=== PATIENT | female | born 1955 | race Caucasian/White ===

== ENCOUNTER 2016-08-05 08:23 | Emergency (ER) | payer OTHER ==
[~2016-08-05] VITALS: Ht 162.6 cm; Wt 77.0 kg
[~2016-08-05 08:23] MED LIST: PRIL40CA PO; RANI150 PO
[2016-08-05 08:27] VITALS: BP 123/74; PULSE 67; RESP 18; TEMP 98.1; O2SAT 99
[2016-08-05] MEDS ORDERED: RANI1TAB7 PO (08:39)
[2016-08-05] MEDS ORDERED: OMEP40CA2 PO (08:39)
[2016-08-05] MEDS ORDERED: CYCL1TAB29 PO (08:49)
--- NOTE | 2016-08-05 08:50 | PD ---
HPI Chief Complaint: Back/ Neck Pain or Injury Time Seen by Provider: 08:36 Travel History International Travel<30 days: No Contact w/Intl Traveler<30days: No Traveled to known affect area: No History of Present Illness HPI 61-year-old female here with complaint of back pain. Over the last 2 weeks patient has had a flareup of her intermittent chronic back pain. This is diffuse throughout the low back. However yesterday she developed pain more right sided and lower. She describes this as pain within the but it radiates minimally down into the right thigh. The pain is cramping and slightly burning in nature. Patient has not had any fevers, chills, bowel or bladder symptoms. No recent falls or trauma. Pain is moderate, and she has not found anything that seems to make it better at home. PFSH Past Medical History Cancer: No Cardiovascular Problems: No Diabetes: No Diminished Hearing: No Endocrine: No Gastrointestinal Disorders: Yes (ESOPHAGEAL DILITATION) GERD: Yes Genitourinary: No Hepatitis: No Hiatal Hernia: No Immune Disorder: No Musculoskeletal: Yes (NECK) Neurologic: No Psychiatric: No Reproductive: No Respiratory: No Thyroid Disease: No Menopausal: Yes Past Surgical History Abdominal Surgery: No Body Medical Devices: PLATE IN NECK Cardiac Surgery: No Ear Surgery: No Endocrine Surgery: No Eye Surgery: Yes (LASIK SURGERY) Genitourinary Surgery: No Gynecologic Surgery: No Joint Replacement: No Oral Surgery: No Pacemaker: No Thoracic Surgery: No Social History Alcohol Use: Yes (OCC) Tobacco Use: No Substance Use: No Allergies-Medications (Allergen,Severity, Reaction): Coded Allergies: No Known Allergies (Unverified , 08/05/16) Reported Meds & Prescriptions Reported Meds & Active Scripts Active Flexeril (Cyclobenzaprine HCl) 10 Mg Tab 10 Mg PO TID PRN Reported Ranitidine Maximum Strength (Ranitidine HCl) 150 Mg Tab 150 Mg PO BID Omeprazole 40 Mg Cap 40 Mg PO DAILY Review of Systems Except as stated in HPI: all other systems reviewed are Neg Physical Exam Narrative GENERAL: Well-appearing female in no acute distress SKIN: Focused skin assessment warm/dry. HEAD: Normocephalic. EYES: No scleral icterus. No injection or drainage. ENT: Mucous membranes pink and moist. NECK: Supple CARDIOVASCULAR: Regular rate and rhythm. RESPIRATORY: No accessory muscle use. GASTROINTESTINAL: Abdomen soft, non-tender, nondistended. MUSCULOSKELETAL: No midline tenderness to palpation of the cervical, thoracic, lumbar spine. Patient has reproducible tenderness to palpation over the right sacroiliac joint that radiates slightly into the buttock and leg. Positive right sided straight leg raise. 5 out of 5 strength in the bilateral lower extremities with distal reflexes, sensation and pulses intact. NEUROLOGICAL: Awake and alert. Gait is slightly antalgic. Normal speech. PSYCHIATRIC: Appropriate mood and affect; insight and judgment normal. Data Data Last Documented VS Vital Signs Date Time Temp Pulse Resp B/P Pulse Ox O2 Delivery O2 Flow Rate FiO2 08/05/16 08:27 98.1 67 18 123/74 99 Orders Ketorolac Inj (Toradol Inj) (08/05/16 09:00) [facility] Medical Decision Making Medical Screen Exam Complete: Yes Emergency Medical Condition: Yes Medical Record Reviewed: Yes Differential Diagnosis 61-year-old female here with complaint of 2 weeks of acute on chronic low back pain, and now primarily more right sided pain over the last day. Exam is consistent with classic sciatica. No red flags or warning signs to warrant imaging for fracture, cauda equina syndrome, epidural abscess. Narrative Course Patient was given Toradol IM and will be given Flexeril and NSAIDs for home. Diagnosis Primary Impression: Right sided sciatica Referrals: Primary Care Physician as needed Patient Instructions: General Instructions, Lower Back Exercises (ED), Sciatica (ED) Additional Instructions: Flexeril as needed for muscle relaxer. Aleve twice a day as discussed. Ice and heat the affected area 20 minutes at a time 3-4 times daily. Stretching exercises as discussed. Follow-up with primary care provider symptoms persist. Med/Other Pt SpecificInfo: Prescription(s) given Scripts Cyclobenzaprine (Flexeril)10 Mg Tab10 Mg PO TID PRN (SPASM) #21 TAB Ref 0 Prov:Hafsa Ocampo MD 08/05/16 Disposition: 01 DISCHARGE HOME Condition: Stable Hafsa Ocampo MD Aug 05, 2016 08:50
[2016-08-05] MEDS ORDERED: KETOROLAC TROMETHAMINE 60 MG/2 ML (IM) VIAL IM ONE (09:00)
== END 2016-08-05 09:14 | disposition home or self-care (01) ==
LOC: PHEFT 08:23
DX: M54.31 Sciatica, right side (principal); K21.9 Gastro-esophageal reflux disease without esophagitis
CPT/HCPCS: 96372; 99284; J1885

== ENCOUNTER 2016-09-16 17:20 | Emergency (ER) | payer OTHER ==
[~2016-09-16] VITALS: Ht 162.6 cm; Wt 79.0 kg
[~2016-09-16 17:20] MED LIST changes: +CYCL1TAB29 PO; +OMEP40CA2 PO; -PRIL40CA PO; -RANI150 PO; +RANI1TAB7 PO
[2016-09-16 17:27] VITALS: BP 163/71; PULSE 66; RESP 16; TEMP 98.2; O2SAT 100
[2016-09-16] MEDS ORDERED: MECL-62 PO (17:47)
[2016-09-16 17:56] VITALS: BP 153/71; PULSE 58; RESP 18; O2SAT 100
--- NOTE | 2016-09-16 18:04 | PD ---
HPI Chief Complaint: Abnormal Results Time Seen by Provider: 17:36 Travel History International Travel<30 days: No Contact w/Intl Traveler<30days: No Traveled to known affect area: No History of Present Illness HPI 61-year-old female complains of lightheadedness, generalized malaise and weakness. Patient states that the symptoms started about month ago and get worse since then. Patient was seen with personal physician and had lab work and EKG done. Patient was referred to transformation lead. Patient was seen by Dr. Rios 3 days ago and had a stress test done 2 days ago which was normal. Patient was advised to have the Holter monitor. Patient has Holter monitor on now. Patient states that she started having increasing tiredness and shortness of breath for the past month. Patient also complains of intermittent dizziness. Patient was taking meclizine which she started yesterday. Patient denies any nausea vomiting diarrhea. Patient denies any headache. Patient denies any chest pain. Patient denies abdominal pain. Patient denies any dysuria or frequency. Patient denies any vaginal discharge or bleeding. Patient denies any blood per rectum. Patient denies any alcohol or drug abuse. Patient was seen by surveyor hydrographic this morning and before the ED for evaluation. PFSH Past Medical History Cancer: No Cardiovascular Problems: Yes (NEG STRESS TEST 08/2016) Diabetes: No Diminished Hearing: No Endocrine: No Gastrointestinal Disorders: Yes (ESOPHAGEAL DILITATION) GERD: Yes Genitourinary: No Hepatitis: No Hiatal Hernia: No Immune Disorder: No Musculoskeletal: Yes (NECK) Neurologic: No Psychiatric: No Reproductive: No Respiratory: No Thyroid Disease: No Influenza Vaccination: Yes ?: Not Menopausal: Yes Past Surgical History Abdominal Surgery: No Body Medical Devices: PLATE IN NECK Cardiac Surgery: Yes Ear Surgery: No Endocrine Surgery: No Eye Surgery: Yes (LASIK SURGERY) Genitourinary Surgery: No Gynecologic Surgery: No Joint Replacement: No Oral Surgery: No Pacemaker: No Thoracic Surgery: No Other Surgery: Yes Social History Alcohol Use: Yes (OCC) Tobacco Use: No Substance Use: No Allergies-Medications (Allergen,Severity, Reaction): Coded Allergies: No Known Allergies (Unverified , 09/16/16) Reported Meds & Prescriptions Reported Meds & Active Scripts Active Potassium Chloride ER (Potassium Chloride) 10 Meq Cap 10 Meq PO DAILY Bactrim DS (Sulfamethoxazole-Trimethoprim) 800-160 Mg Tab 1 Tab PO BID Reported Meclizine (Meclizine HCl) 25 Mg Tab 25 Mg PO DIRECTED PRN Ranitidine Maximum Strength (Ranitidine HCl) 150 Mg Tab 150 Mg PO BID Omeprazole 40 Mg Cap 40 Mg PO DAILY Review of Systems General / Constitutional: No: Fever Eyes: No: Visual changes HENT: Positive: Lightheadedness, No: Headaches Cardiovascular: No: Chest Pain or Discomfort Respiratory: Positive: Shortness of Breath Gastrointestinal: No: Abdominal Pain Genitourinary: No: Dysuria Musculoskeletal: No: Pain Skin: No Rash Neurologic: No: Weakness Psychiatric: No: Depression Endocrine: No: Polydipsia Hematologic/Lymphatic: No: Easy Bruising Physical Exam Narrative GENERAL: Well-nourished, well-developed patient. SKIN: Focused skin assessment warm/dry. HEAD: Normocephalic. EYES: No scleral icterus. No injection or drainage. NECK: Supple, trachea midline. No JVD or lymphadenopathy. CARDIOVASCULAR: Regular rate and rhythm without murmurs, gallops, or rubs. RESPIRATORY: Breath sounds equal bilaterally. No accessory muscle use. GASTROINTESTINAL: Abdomen soft, non-tender, nondistended. MUSCULOSKELETAL: No cyanosis, or edema. BACK: Nontender without obvious deformity. No CVA tenderness. Neurologic exam normal. Data Data Last Documented VS Vital Signs Date Time Temp Pulse Resp B/P Pulse Ox O2 Delivery O2 Flow Rate FiO2 09/16/16 19:10 52 20 100 09/16/16 19:08 142/76 09/16/16 17:56 Room Air 09/16/16 17:27 98.2 Orders Electrocardiogram (09/16/16 17:52) Complete Blood Count With Diff (09/16/16 17:52) Comprehensive Metabolic Panel (09/16/16 17:52) Creatine Kinase (Cpk) (09/16/16 17:52) Troponin I (09/16/16 17:52) B-Type Natriuretic Peptide (09/16/16 17:52) Prothrombin Time / Inr (Pt) (09/16/16 17:52) Act Partial Throm Time (Ptt) (09/16/16 17:52) Urinalysis - C+S If Indicated (09/16/16 17:52) Thyroid Stimulating Hormone (09/16/16 17:52) Chest, Single Ap (09/16/16 17:52) Ct Brain W/O Iv Contrast(Rout) (09/16/16 17:52) Iv Access Insert/Monitor (09/16/16 17:52) Ecg Monitoring (09/16/16 17:52) Oximetry (09/16/16 17:52) Urine Culture (09/16/16 17:45) Potassium Chloride (Kcl) (09/16/16 18:45) Sodium Chlorid 0.9% 500 Ml Inj (Ns 500 M (09/16/16 19:00) Sulfamet-Trimeth Ds 800-160 Mg (Bactrim (09/16/16 19:15) Iron Sucrose Inj (Venofer Inj) (09/16/16 19:30) Vitamin B12 (09/16/16 19:17) Folate, Serum (09/16/16 19:17) Ferritin (09/16/16 19:17) Iron/Tibc Profile (09/16/16 19:17) Retic Count (09/16/16 19:17) Labs Laboratory Tests Test 09/16/16 09/16/16 17:45 17:55 Urine Color YELLOW Urine Turbidity CLEAR Urine pH 6.0 Urine Specific [place] 1.000 Urine Protein NEG mg/dL Urine Glucose (UA) NEG mg/dL Urine Ketones NEG mg/dL Urine Occult Blood NEG Urine Nitrite NEG Urine Bilirubin NEG Urine Leukocyte Esterase SMALL Urine RBC 0-3 /hpf Urine WBC 9-14 /hpf Urine Squamous Epithelial 0-5 /hpf Cells Microscopic Urinalysis Comment CULTURE INDICATED White Blood Count 6.8 TH/MM3 Red Blood Count 4.38 MIL/MM3 Hemoglobin 10.5 GM/DL Hematocrit 32.2 % Mean Corpuscular Volume 73.5 FL Mean Corpuscular Hemoglobin 24.0 PG Mean Corpuscular Hemoglobin 32.7 % Concent Red Cell Distribution Width 17.5 % Platelet Count 279 TH/MM3 Mean Platelet Volume 7.8 FL Neutrophils (%) (Auto) 55.7 % Lymphocytes (%) (Auto) 34.7 % Monocytes (%) (Auto) 7.6 % Eosinophils (%) (Auto) 1.2 % Basophils (%) (Auto) 0.8 % Neutrophils # (Auto) 3.8 TH/MM3 Lymphocytes # (Auto) 2.3 TH/MM3 Monocytes # (Auto) 0.5 TH/MM3 Eosinophils # (Auto) 0.1 TH/MM3 Basophils # (Auto) 0.1 TH/MM3 CBC Comment AUTO DIFF Differential Comment AUTO DIFF CONFIRMED Ovalocytes 1+ Prothrombin Time 10.6 SEC Prothromb Time International 1.0 RATIO Ratio Activated Partial 26.1 SEC Thromboplast Time Sodium Level 141 MEQ/L Potassium Level 3.1 MEQ/L Chloride Level 108 MEQ/L Carbon Dioxide Level 23.7 MEQ/L Anion Gap 9 MEQ/L Blood Urea Nitrogen 13 MG/DL Creatinine 0.76 MG/DL Estimat Glomerular Filtration 78 ML/MIN Rate Random Glucose 96 MG/DL Calcium Level 8.4 MG/DL Total Bilirubin 0.4 MG/DL Aspartate Amino Transf 17 U/L (AST/SGOT) Alanine Aminotransferase 28 U/L (ALT/SGPT) Alkaline Phosphatase 102 U/L Total Creatine Kinase 114 U/L Troponin I LESS THAN 0.02 NG/ML B-Type Natriuretic Peptide 28 PG/ML Total Protein 7.8 GM/DL Albumin 3.9 GM/DL Thyroid Stimulating Hormone 1.820 uIU/ML [address] [place] [address] Medical Decision Making Medical Screen Exam Complete: Yes Emergency Medical Condition: Yes Interpretation(s) 1833 PM. CBC WBC 6.8. Hemoglobin 10.5 hematocrit 32.2. Potassium 3.1. UA positive for WBC. Last Impressions Head CT 09/16/16 1752 Signed Impressions: Service Date/Time: Monday, September 16, 2016 18:08 - CONCLUSION: Normal examination. Bobby Curtis MD 1840 2 PM. Chest x-ray shows no acute consolidation. Differential Diagnosis Differential diagnosis including viral syndrome, electrolyte imbalance, dehydration, anemia, pulmonary disease, cardiac disease. Narrative Course 61-year-old female with generalized malaise and weakness and dizziness and shortness of breath. KCl 40 mEq by mouth given. Normal saline solution 500 cc IV bolus. Bactrim DS one tablet by mouth given. I spoke with Dr. Gonzalez. Advised serum iron level, TIBC, ferritin, B12 folate level and patient given iron infusion prior to discharge. Diagnosis Primary Impression: Hypokalemia Additional Impressions: Dehydration UTI (urinary tract infection) Qualified Code: N30.00 - Acute cystitis without hematuria Anemia Qualified Code: D64.9 - Anemia, unspecified type Patient Instructions: General Instructions Additional Instructions: Encourage by mouth fluids. Follow-up with personal physician. Return if worse. Med/Other Pt SpecificInfo: Prescription(s) given, No Change to Meds Scripts Potassium Chloride ER 10 Meq Cap10 Meq PO DAILY #7 CAP Ref 0 Prov:Jasper Lake MD 09/16/16 Sulfamethoxazole-Trimethoprim (Bactrim DS)800-160 Mg Tab1 Tab PO BID #14 TAB Prov:Jasper Lake MD 09/16/16 Disposition: 01 DISCHARGE HOME Condition: Stable Jasper Lake MD Sep 16, 2016 18:04
[2016-09-16 18:10] LABS: AUTOMATED NEUTROPHIL # 3.8 TH/MM3 (1.8-7.7); BASOPHIL # 0.1 TH/MM3 (0-0.2); BASOPHIL % 0.8 % (0.0-2.0); EOSINOPHIL # 0.1 TH/MM3 (0-0.4); EOSINOPHIL % 1.2 % (0.0-4.0); HEMATOCRIT 32.2 % (35.0-46.0); LYMPH % 34.7 % (9.0-44.0); LYMPHOCYTE # 2.3 TH/MM3 (1.0-4.8); MEAN CELL VOLUME 73.5 FL (80.0-100.0); MEAN CORPUSCULAR HGB CONC 32.7 % (32.0-36.0); MONO % 7.6 % (0.0-8.0); NEUT % 55.7 % (16.0-70.0); PLATELET COUNT 279 TH/MM3 (150-450); RED BLOOD COUNT 4.38 MIL/MM3 (4.00-5.30); RED CELL DISTRIBUTION WIDTH 17.5 % (11.6-17.2); WHITE BLOOD COUNT 6.8 TH/MM3 (4.0-11.0)
[2016-09-16 18:14] LABS: HEMO FLAGS AUTO DIFF
[2016-09-16 18:21] LABS: CHLORIDE 108 MEQ/L (98-107); POTASSIUM 3.1 MEQ/L (3.5-5.1); SODIUM (NA) 141 MEQ/L (136-145)
[2016-09-16 18:25] LABS: ANION GAP 9 MEQ/L (5-15); BICARBONATE 23.7 MEQ/L (21.0-32.0); BLOOD UREA NITROGEN 13 MG/DL (7-18)
[2016-09-16 18:25] LABS: BLOOD, URINE NEG (NEG); GLUCOSE,URINE NEG (NEG); KETONE, URINE NEG (NEG); NITRITE,URINE NEG (NEG)
--- NOTE | 2016-09-16 18:26 | RADRPT ---
EXAM DATE/TIME: 09/16/2016 18:08 [facility] COMPARISON: No previous studies available for comparison. INDICATIONS : Dizziness. General weakness. RADIATION DOSE: 61.18 CTDIvol (mGy) MEDICAL HISTORY : Gastroesophageal reflux disease. SURGICAL HISTORY : Esophageal dilitation. ENCOUNTER: Initial ACUITY: 1 month PAIN SCALE: 0/10 LOCATION: Bilateral cranial TECHNIQUE: Multiple contiguous axial images were obtained of the head. Using automated exposure control and adj ustment of the mA and/or kV according to patient size, radiation dose was kept as low as reasonably a chievable to obtain optimal diagnostic quality images. DICOM format image data is available electro nically for review and comparison. FINDINGS: CEREBRUM: The ventricles are normal for age. No evidence of midline shift, mass lesion, hemorrhage or acute in farction. No extra-axial fluid collections are seen. POSTERIOR FOSSA: The cerebellum and brainstem are intact. The 4th ventricle is midline. The cerebellopontine angle i s unremarkable. EXTRACRANIAL: The visualized portion of the orbits is intact. SKULL: The calvaria is intact. No evidence of skull fracture. CONCLUSION: Normal examination. Bobby Curtis MD on September 16, 2016 at 18:25 Board Certified Radiologist. This report was verified electronically.
[2016-09-16 18:27] LABS: APTT (PATIENT) 26.1 SEC (24.3-30.1); PROTHROMBIN TIME - PATIENT 10.6 SEC (9.8-11.6)
[2016-09-16 18:28] LABS: ALT (GPT) 28 U/L (10-53); AST (GOT) 17 U/L (15-37); GLOMERULAR FILTRATION RATE 78 ML/MIN (>89)
[2016-09-16 18:30] LABS: COMMENT (UR) CULTURE INDICATED; CULTURE IF INDICATED CULTURE INDICATED; RBC, URINE 0-3 /hpf (0-3); SQUAMOUS EPITHELIAL CELL URINE 0-5 /hpf (0-5); URINE COLOR YELLOW (YELLW/STRAW)
[2016-09-16 18:30] LABS: TOTAL BILIRUBIN ADULT 0.4 MG/DL (0.2-1.0)
[2016-09-16 18:31] LABS: ALKALINE PHOSPHATASE 102 U/L (45-117); CREATINE KINASE 114 U/L (26-192)
--- NOTE | 2016-09-16 18:38 | RADRPT ---
EXAM DATE/TIME: 09/16/2016 18:04 [facility] COMPARISON: CHEST SINGLE AP, November 23, 2015, 12:46. INDICATIONS : Short of breath. MEDICAL HISTORY : None. SURGICAL HISTORY : None. ENCOUNTER: Initial ACUITY: 1 day PAIN SCORE: 7/10 LOCATION: Bilateral chest FINDINGS: A single view of the chest demonstrates the lungs to be symmetrically aerated without evidence of mas s, infiltrate or effusion. The cardiomediastinal contours are unremarkable. Osseous structures demo nstrate a stable nonacute deformity distal right clavicle.. CONCLUSION: No acute disease. Bobby Curtis MD on September 16, 2016 at 18:36 Board Certified Radiologist. This report was verified electronically.
[2016-09-16] MEDS ORDERED: POTASSIUM CHLORIDE 20 MEQ CONTROLLED RELEASE TAB PO ONE (18:45)
[2016-09-16 18:48] LABS: OVALOCYTES 1+ (NORMAL); SCAN/DIFF AUTO DIFF CONFIRMED
[2016-09-16 18:50] VITALS: BP_SYST 120; BP_SYST 154; BP_DIAS 74; BP_DIAS 79; RESP 18
[2016-09-16] MEDS ORDERED: SODIUM CHLORID 0.9% 500 ML INJ 500 ML IV ONE (19:00)
[2016-09-16 19:08] VITALS: BP 142/76; PULSE 54; RESP 20; O2SAT 100
[2016-09-16] MEDS ORDERED: BACT800T5 PO (19:08)
[2016-09-16] MEDS ORDERED: POTA10CA PO (19:08)
[2016-09-16] MEDS ORDERED: SULFAMETHOXAZOLE-TRIMETHOPRIM DS 800-160 MG TAB PO ONE (19:15)
[2016-09-16] MEDS ORDERED: IRON SUCROSE 100 MG/5 ML VIAL IV PUSH ONE (19:30)
[2016-09-16] MEDS ORDERED: IRON SUCROSE INJ 200 MG in SODIUM CHLORIDE 0.9% INJ 100 ML IV ONE (20:00)
[2016-09-16 20:09] VITALS: BP 149/69; PULSE 57; RESP 20; O2SAT 100
[2016-09-16 21:25] VITALS: BP 114/60
[2016-09-16 22:44] LABS: RETIC % 1.3 % (0.4-3.0); REVIEW FLAG FINAL
[2016-09-16 23:30] LABS: TRANSFERRIN IRON PROFILE 350 MG/DL (200-360)
[2016-09-16 23:55] LABS: FERRITIN 8 NG/ML (8-252)
--- NOTE | 2016-09-17 12:02 | EKG ---
Date Performed: 09/16/2016 Time Performed: 18:06:14 PTAGE: 61 years EKG: SINUS BRADYCARDIA ST DEVIATION AND MODERATE T-WAVE ABNORMALITY, CONSIDER ANTEROLATERAL ISCH EMIA Since previous tracing, no significant change noted ABNORMAL ECG PREVIOUS TRACING : 11/23/2015 13.04 DOCTOR: Vik Jacobson Interpretating Date/Time 09/17/2016 12:02:23
== END 2016-09-16 21:28 | disposition home or self-care (01) ==
LOC: PHED 17:20
DX: E87.6 Hypokalemia (principal); E86.0 Dehydration; N30.00 Acute cystitis without hematuria; B96.89 Other specified bacterial agents as the cause of diseases classified elsewhere; D64.9 Anemia, unspecified
CPT/HCPCS: 70450; 71010; 80053; 81001; 82550; 82607; 82728; 82746; 83540; 83550; 83880; 84443; 84484; 85025; 85044; 85610; 85730; 87086; 93005; 96361; 96374; 99285; J1756; J7040

== ENCOUNTER 2017-02-11 13:11 | Emergency (ER) | payer OTHER ==
[~2017-02-11] VITALS: Ht 162.6 cm; Wt 76.0 kg
[~2017-02-11 13:11] MED LIST changes: +BACT800T5 PO; -CYCL1TAB29 PO; +MECL-62 PO; +POTA10CA PO
[2017-02-11 13:15] VITALS: BP 117/84; PULSE 85; RESP 16; TEMP 97.4; O2SAT 100
[2017-02-11] MEDS ORDERED: CYCL10TA PO (13:43)
[2017-02-11] MEDS ORDERED: TRAM50TA PO (13:43)
[2017-02-11] MEDS ORDERED: oxyCODONE/ACETAMINOPHEN 5 MG/325 MG TAB PO ONE (14:00)
[2017-02-11] MEDS ORDERED: ORPHENADRINE INJ 60 MG/2 ML AMP IM ONE (14:00)
--- NOTE | 2017-02-11 14:21 | PD ---
HPI Chief Complaint: Musculoskeletal Complaint Time Seen by Provider: 13:41 Travel History International Travel<30 days: No Contact w/Intl Traveler<30days: No Traveled to known affect area: No History of Present Illness HPI Patient is a 61-year-old female who presents emergency department for evaluation of right-sided low back pain. Patient states that she awoke about a week and a half ago with right-sided low back pain, she went to her primary care physician was placed on muscle relaxers and Ultram and had referrals to physical therapy, not feeling any better after we can a half she states the pain is actually getting worse and limiting her mobility at home. She states no imaging is been performed on her back yet, denies any difficulty urinating, denies any injury denies any numbness tingling or weakness in her lower extremities. PFSH Past Medical History Cardiovascular Problems: Yes (NEG STRESS TEST 08/2016) Diminished Hearing: No Gastrointestinal Disorders: Yes (ESOPHAGEAL DILITATION) GERD: Yes Musculoskeletal: Yes (NECK) Thyroid Disease: No Tetanus Vaccination: > 5 Years Influenza Vaccination: Yes Menopausal: Yes Past Surgical History Surgical History: No Previous Surgery Body Medical Devices: PLATE IN NECK Cardiac Surgery: Yes Eye Surgery: Yes (LASIK SURGERY) Joint Replacement: No Other Surgery: Yes Social History Alcohol Use: Yes (OCC) Tobacco Use: No Substance Use: No Allergies-Medications (Allergen,Severity, Reaction): Coded Allergies: No Known Allergies (Unverified Adverse Reaction, Unknown, 02/11/17) Reported Meds & Prescriptions Reported Meds & Active Scripts Active Percocet (Oxycodone-Acetaminophen) 5-325 mg Tab 1 Tab PO Q6H PRN Prednisone 20 Mg Tab 60 Mg PO DAILY 5 Days Reported Flexeril (Cyclobenzaprine HCl) 10 Mg Tab 10 Mg PO TID Tramadol (Tramadol HCl) 50 Mg Tab 100 Mg PO Q6H PRN Ranitidine Maximum Strength (Ranitidine HCl) 150 Mg Tab 150 Mg PO BID Review of Systems Except as stated in HPI: all other systems reviewed are Neg Physical Exam Narrative GENERAL: Well-developed well-nourished no obvious distress. SKIN: Focused skin assessment warm/dry. HEAD: Atraumatic. Normocephalic. EYES: Pupils equal and round. No scleral icterus. No injection or drainage. ENT: No nasal bleeding or discharge. Mucous membranes pink and moist. NECK: Trachea midline. No JVD. CARDIOVASCULAR: Regular rate and rhythm. No murmur appreciated. RESPIRATORY: No accessory muscle use. Clear to auscultation. Breath sounds equal bilaterally. GASTROINTESTINAL: Abdomen soft, non-tender, nondistended. Hepatic and splenic margins not palpable. MUSCULOSKELETAL: No obvious deformities. No clubbing. No cyanosis. No edema. No midline CT or L-spine tenderness, sensation intact or L4-L5 S1, 5 out of 5 strength in bilateral lower extremities, there is some minimal tenderness on the right flank superficial palpation, no deep tenderness to CVA percussion. NEUROLOGICAL: Awake and alert. No obvious cranial nerve deficits. Motor grossly within normal limits. Normal speech. PSYCHIATRIC: Appropriate mood and affect; insight and judgment normal. Data Data Last Documented VS Vital Signs Date Time Temp Pulse Resp B/P (MAP) Pulse Ox O2 Delivery O2 Flow Rate FiO2 02/11/17 13:15 97.4 85 16 117/84 (95) [address] Lumb Spine W/O Contrast (02/11/17 ) Oxycodone-Acetamin 5-325 Mg (Percocet (02/11/17 14:00) Orphenadrine Inj (Norflex Inj) (02/11/17 14:00) Ed Discharge Order (02/11/17 15:03) MDM Medical Decision Making Medical Screen Exam Complete: Yes Emergency Medical Condition: Yes Differential Diagnosis Occult fracture, muscular strain, cauda equina is excluded clinically. Narrative Course patient roomed in the emergency department, physical exam is much more consistent with a muscular strain, no history of trauma. She's not had any imaging during this back episode and therefore imaging is indicated as between her primary care physician and the physical therapist this is a third visit. CT imaging obtained shows no obvious bony abnormality. Patient was given medicine in the emergency department ambulated, she stable for discharge, discussed symptomatic management follow-up with a primary care physician and return to ED criteria. Last 24 hours Impressions Lumbar Spine CT 02/11/17 0000 Signed Impressions: Service Date/Time: Monday, February 11, 2017 13:59 - CONCLUSION: 1. No acute fracture or subluxation. 2. Mild multilevel degenerative spondylosis of the lower lumbar spine with facet arthropathy most prominently at L3-4. No significant central canal or neuroforaminal stenosis. Ry Rizvi MD Diagnosis Primary Impression: Low back pain Qualified Codes: M54.5 - Low back pain Med/Other Pt SpecificInfo: Prescription(s) given Scripts Oxycodone-Acetaminophen (Percocet) 5-325 mg Tab 1 TAB PO Q6H Y for PAIN, #12 TAB 0 Refills Prov: Indio Wyatt MD 02/11/17 Prednisone (Prednisone) 20 Mg Tab 60 MG PO DAILY for 5 Days, #15 TAB 0 Refills Prov: Indio Wyatt MD 02/11/17 Disposition: 01 DISCHARGE HOME Condition: Stable Indio Wyatt MD Feb 11, 2017 14:21
--- NOTE | 2017-02-11 14:33 | RADRPT ---
EXAM DATE/TIME: 02/11/2017 13:59 [facility] COMPARISON: No previous studies available for comparison. INDICATIONS : Sudden onset of severe back pain, limited motion. RADIATION DOSE: 39.16 CTDIvol (mGy) MEDICAL HISTORY : Cardiovascular disease. SURGICAL HISTORY : Esophageal dilitation, shoulder,neck and hand surgery. ENCOUNTER: Initial ACUITY: 1 week PAIN SCALE: 10/10 LOCATION: Bilateral lower back. TECHNIQUE: Volumetric scanning of the lumbar spine was performed. Multiplanar reconstructions in the sagittal, coronal and oblique axial planes were performed. Using automated exposure control and adjustment of the mA and/or kV according to patient size, radiation dose was kept as low as reasonably achievable t o obtain optimal diagnostic quality images. DICOM format image data is available electronically for review and comparison. FINDINGS: There are 5 lumbar-type vertebral bodies with very small vestigial ribs noted at T12. Vertebral body heights are intact without evidence for acute bony fracture or focal bony destruction. Sagittal align ment is maintained. Facets are normally aligned. Paravertebral soft tissues are unremarkable. Aorta i s non-aneurysmal. Visualized portions of the kidneys are grossly unremarkable. There is no significan t retroperitoneal adenopathy. Bony central canal is patent. There is mild degenerative spondylosis of the lower lumbar spine with mild diffuse disc bulge at L3-S1 resulting in slight effacement of the a nterior thecal sac. Mild caudal bilateral neural foraminal narrowing at L3-4. Mild ligamentum flavum hypertrophy and facet arthropathy most prominently at L3-4. CONCLUSION: 1. No acute fracture or subluxation. 2. Mild multilevel degenerative spondylosis of the lower lumbar spine with facet arthropathy most pro minently at L3-4. No significant central canal or neuroforaminal stenosis. Ry Rizvi MD on February 11, 2017 at 14:26 Board Certified Radiologist. This report was verified electronically.
[2017-02-11] MEDS ORDERED: PRED20 PO (15:05)
[2017-02-11] MEDS ORDERED: PERC5TAB12 PO (15:14)
== END 2017-02-11 15:24 | disposition home or self-care (01) ==
LOC: PHEFT 13:11
DX: M54.5 Low back pain (principal)
CPT/HCPCS: 72131; 96372; 99285; J2360